=== PATIENT | female | born 1985 | race Caucasian/White ===

== ENCOUNTER 2016-03-24 06:56 | Emergency (ER) | payer MEDICAID, OTHER ==
[2016-03-24] MEDS ORDERED: KETOROLAC 30 MG/ML 1 ML VIAL IVP STA (07:20)
[2016-03-24] MEDS ORDERED: SODIUM CHLORIDE 0.9% 1,000 ML IV ONE (07:20)
[2016-03-24] MEDS ORDERED: METOCLOPRAMIDE 5 MG/ML 2 ML VIAL IVP STA (07:20)
[2016-03-24] MEDS ORDERED: diphenhydrAMINE 50 MG/ML 1 ML VIAL IVP STA (07:20)
--- NOTE | 2016-03-24 07:29 | ED ---
Headache HPI - General Chief Complaint: Headache Stated Complaint: Migrane Time Seen by Provider: 03/24/16 07:05 Source: RN notes reviewed Mode of arrival: ambulatory Limitations: no limitations - History of Present Illness Initial Comments: This patient is a 31-year-old woman who has history of migraine headaches, who presents with onset of which she is describing as watery typical migraine headaches this morning around 2. It did wake her from sleep. She tried taking the Fioricet which was prescribed by her physician but she had vomiting and does not think it was working for this reason. When the headache did not resolve she presented here. She states this is not the worst headache of her life. She has been having migraines for probably 6-7 years, and has previously seen neurologists for this. Patient denies fever or chills, neck stiffness, rash, change in vision or hearing, or any other neurologic symptoms. MD Complaint: headache Onset/Timin -: hour(s) Onset Description: awoke with symptoms Location: right, left, temporal Severity: severe Quality: throbbing Consistency: constant Improves With: nothing Worsens With: none Associated Symptoms: nausea, vomiting Treatments Prior to Arrival: prescription analgesic (Fioricet) - Related Data Home Medications Medication Instructions Recorded Confirmed Beclomethasone Dipropionate [Qvar 1 puff INHALATION RT-BID 03/24/16 03/24/16 80 mcg] Butalb/Acetaminophen/Caffeine 1 - 2 cap PO Q8HR PRN 03/24/16 03/24/16 [Fioricet 50-300-40 mg Capsule] Dextroamphetamine/Amphetamine 20 mg PO QAM 03/24/16 03/24/16 [Adderall Xr] Nortriptyline HCl [Pamelor] 25 mg PO HS 03/24/16 03/24/16 Allergies Allergy/AdvReac Type Severity Reaction Status Date / Time No Known Allergies Allergy Verified 03/24/16 07:26 Review of Systems ROS Statement: Those systems with pertinent positive or pertinent negative responses have been documented in the HPI. ROS Other: All systems not noted in ROS Statement are negative. Constitutional: Denies: fever, chills, weakness Eyes: Denies: eye pain, vision change ENT: Denies: ear pain, hearing loss, congestion Gastrointestinal: Reports: nausea, vomiting. Denies: abdominal pain Musculoskeletal: Denies: back pain Skin: Denies: rash Neurological: Reports: headache. Denies: weakness, numbness, paresthesias, confusion, abnormal gait Past Medical History Additional Past Medical History / Comment(s): migraines History of Any Multi-Drug Resistant Organisms: None Reported Additional Past Surgical History / Comment(s): eye sx Past Psychological History: No Psychological Hx Reported Smoking Status: Former smoker Past Alcohol Use History: Daily Past Drug Use History: None Reported General Exam Limitations: no limitations General appearance: alert, in no apparent distress Head exam: Present: atraumatic, normocephalic, normal inspection Eye exam: Present: normal appearance, PERRL, EOMI, other (Unable to perform funduscopic exam due to photophobia). Absent: scleral icterus, conjunctival injection ENT exam: Present: normal oropharynx, mucous membranes dry Neck exam: Present: normal inspection, full ROM. Absent: meningismus Neurological exam: Present: alert, oriented X3, CN II-XII intact, normal gait. Absent: motor sensory deficit Skin exam: Present: warm, dry, intact, normal color. Absent: rash Course Vital Signs 03/24/16 07:00 Temperature 98.0 F Pulse Rate 126 H Respiratory 18 Rate Blood Pressure 137/91 O2 Sat by Pulse 100 Oximetry Disposition Clinical Impression: Migraine Disposition: HOME SELF-CARE Condition: Good Instructions: Acute Headache (ED) Referrals: Stewart Cox DO [Primary Care Provider] - 1-2 days
[2016-03-24 09:19] VITALS: BP 105/56; PULSE 78; RESP 20; TEMP 98
== END 2016-03-24 09:19 | disposition home or self-care (01) ==
LOC: EC 06:56
DX: G43.909 Migraine, unspecified, not intractable, without status migrainosus (principal); R11.2 Nausea with vomiting, unspecified; Z87.891 Personal history of nicotine dependence; Z79.51 Long term (current) use of inhaled steroids; Z79.899 Other long term (current) drug therapy
CPT/HCPCS: 99283 ×2; 96374 ×2; 96375 ×3; 96361 ×2; J1200; J2765; J1885

== ENCOUNTER → 2016-04-04 | Outpatient (CLI) | payer MEDICAID ==
--- NOTE | 2016-04-04 12:34 | CT ---
EXAMINATION TYPE: CT angio chest DATE OF EXAM: 04/04/2016 12:29 PM COMPARISON: 09/10/2009 HISTORY: increased heart rate CT DLP: 505 mGycm CONTRAST: CT chest with contrast and 3D reconstruction with MIP imaging is performed with IV Contrast, patient injected with 75 mL of Omnipaque 350. Contrast-enhanced CT of the chest was performed through the course of the pulmonary arteries with tracie g and mediastinal window settings submitted. 3D reconstruction with MIP imaging was also performed. PULMONARY ARTERIES: The pulmonary arteries and their major tributaries are patent. I do not see bisi dence for sizable filling defect to suggest pulmonary embolic process. LUNGS: The lungs are clear and free of infiltrate. No evidence for atelectasis. No pulmonary nodule or mass is detected. No pleural effusion. MEDIASTINUM: Thoracic aorta is of normal caliber . The heart is not enlarged. No evidence for media stinal mass. No mediastinal lymph nodes greater than 1cm. HILAR STRUCTURES: No evidence for mass. No hilar lymph nodes greater than 1 cm. UPPER ABDOMEN: No significant abnormality is seen. IMPRESSION: 1. No evidence for Pulmonary embolism at this time.
== END | disposition home or self-care (01) ==
LOC: RADCTMAIN 11:40
PROVIDERS: ATTEND Family Medicine
DX: R00.0 Tachycardia, unspecified (principal); R06.00 Dyspnea, unspecified
CPT/HCPCS: 71275; Q9967

== ENCOUNTER → 2016-04-06 | Outpatient (CLI) | payer MEDICAID ==
--- NOTE | 2016-04-06 16:26 | ECHOF ---
Referral Reason:R00.0 Tachycardia, Unspecified MEASUREMENTS -------- HEIGHT: 160.0 cm WEIGHT: 65.8 kg BP: IVSd: 0.8 cm (0.6 - 1.1) LVIDd: 4.0 cm (3.9 - 5.3) LVPWd: 0.9 cm (0.6 - 1.1) IVSs: 1.3 cm LVIDs: 2.8 cm LVPWs: 1.3 cm Ao Diam: 2.5 cm (2.0 - 3.7) AV Cusp: 1.8 cm (1.5 - 2.6) LA Diam: 2.5 cm (2.7 - 3.8) MV EXCURSION: 17.766 mm (> 18.000) MV EF SLOPE: 146 mm/s (70 - 150) EPSS: 0.9 cm MV E Wojciech: 0.93 m/s MV DecT: 177 ms MV A Wojciech: 0.75 m/s MV E/A Ratio: 1.25 RAP: 5.00 mmHg RVSP: 15.69 mmHg FINDINGS -------- Sinus rhythm. Resting tachycardia (HR>100bpm). This was a technically good study. Left ventricular wall thickness is normal. Overall left ventricular systolic function is normal with, an EF between 55 - 60 %. The right ventricle is normal in size and function. The left atrium is normal in size. The right atrium is normal in size. The aortic valve is trileaflet, and appears structurally normal. No aortic stenosis or regurgitation. There is trace mitral regurgitation. Trace tricuspid regurgitation present. The right ventricular systolic pressure, as measured by Doppler, is 15.69mmHg. Pulmonic valve appears structurally normal. The aortic root size is normal. Echo free space may represent effusion or a pericardial fat pad. CONCLUSIONS -------- 1. Sinus rhythm. 2. There is trace mitral regurgitation. 3. Trace tricuspid regurgitation present. 4. The right ventricular systolic pressure, as measured by Doppler, is 15.69mmHg. 5. Pulmonic valve appears structurally normal. 6. The aortic root size is normal. 7. Echo free space may represent effusion or a pericardial fat pad. 8. Resting tachycardia (HR>100bpm). 9. This was a technically good study. 10. Left ventricular wall thickness is normal. 11. Overall left ventricular systolic function is normal with, an EF between 55 - 60 %. 12. The right ventricle is normal in size and function. 13. The left atrium is normal in size. 14. The right atrium is normal in size. 15. The aortic valve is trileaflet, and appears structurally normal. No aortic stenosis or regurgitation. ADMINISTRATION DEAN: Adrienne Rosales RDCS
== END | disposition home or self-care (01) ==
LOC: RADECHMAIN 13:08
PROVIDERS: ATTEND Family Medicine
DX: I08.1 Rheumatic disorders of both mitral and tricuspid valves (principal); R00.0 Tachycardia, unspecified
CPT/HCPCS: 93306

== ENCOUNTER → 2016-05-04 | Outpatient (CLI) | payer MEDICAID | END | disposition home or self-care (01) | LOC: RADECHMAIN 12:26 | PROVIDERS: ATTEND Internal Medicine Interventional Cardiology | DX: R00.2 Palpitations (principal) | CPT/HCPCS: 93225; 93226 ==

== ENCOUNTER → 2018-03-14 | Outpatient (CLI) | payer MEDICAID ==
--- NOTE | 2018-03-14 14:21 | EST ---
EXERCISE STRESS AGE: 33 SEX: F HT: 5'3" WT: 150 PROTOCOL: José Stress Test STAGE: III DURATION OF EXERCISE: 9:17 HEART RATE REST: 98 BLOOD PRESSURE REST: 129/69 MAXIMUM HEART RATE ACHIEVED: 164 MAXIMUM BLOOD PRESSURE: 167/80 85% MPHR: 159 100% MPHR: 187 METS: 10.5 INDICATIONS: Rapid heart beat CLINICAL INFORMATION: Patient was exercised for a total period of 9 minutes. Peak heart rate of 164 was achieved. Maximum blood pressure of 167/80 mmHg was noted. Resting EKG shows normal sinus rhythm with normal TN interval and QRS duration and normal ST-T waves. No ST- segment depression suggestive of ischemia is noted. No dysrhythmias are noted. FINAL IMPRESSION: 1. This exercise stress test is not suggestive of ischemia. 2. Patient's exercise tolerance is normal. 3. No dysrhythmias are noted. MMEL / CORRINEN: [id number] /
== END | disposition home or self-care (01) ==
LOC: RADNMMAIN 08:48
PROVIDERS: ATTEND Family Medicine
DX: I47.1 Supraventricular tachycardia (principal)
CPT/HCPCS: 93017

== ENCOUNTER → 2018-07-11 | Outpatient (CLI) | payer MEDICAID ==
--- NOTE | 2018-07-11 14:47 | US ---
EXAMINATION TYPE: US thyroid st tissue head/neck DATE OF EXAM: 07/11/2018 COMPARISON: NONE CLINICAL HISTORY: E04.9 goiter. Physician felt enlarged thyroid GLAND SIZE: Right Lobe: 4.4 x 1.1 x 1.3 cm Overall Parenchyma: homogenous Left Lobe: 4.8 x 1.3 x 1.3 cm Overall Parenchyma: homogeneous Isthmus Thickness: 0.2 cm NODULES RIGHT: # of nodules measured on right: 0 LEFT: # of nodules measured on left: 0 ISTHMUS: # of nodules measured in the isthmus: 0 Bilateral neck scanned, no evidence of lymphadenopathy. IMPRESSION: No distinct abnormality appreciated at this time.
[2018-07-11 18:50] LABS: T4, Free (Free Thyroxine) 0.99 ng/dL (0.78-2.19)
== END | disposition home or self-care (01) ==
LOC: RADUSWWP 14:12
PROVIDERS: ATTEND Family Medicine
DX: E04.9 Nontoxic goiter, unspecified (principal)
CPT/HCPCS: 36415; 76536; 84439; 84443

== ENCOUNTER → 2018-10-16 | Outpatient (CLI) | payer MEDICAID ==
[2018-10-16 14:57] LABS: Basophils # (A) 0.1 k/uL (0-0.2); Basophils % (A) 1 %; Eosinophils # (A) 0.1 k/uL (0-0.7); Eosinophils % (A) 1 %; HCT 38.5 % (34.0-46.0); HGB 12.4 gm/dL (11.4-16.0); Lymphocytes # (A) 2.7 k/uL (1.0-4.8); Lymphocytes % (A) 28 %; MCH 30.6 pg (25.0-35.0); MCHC 32.2 g/dL (31.0-37.0); Mean Platelet Volume 10.1; Monocytes # (A) 0.4 k/uL (0-1.0); Monocytes % (A) 4 %; Neutrophils # (A) 6.4 k/uL (1.3-7.7); Neutrophils % (A) 65 %; Platelet Count 309 k/uL (150-450); RBC 4.05 m/uL (3.80-5.40); RDW 13.8 % (11.5-15.5); WBC 9.9 k/uL (3.8-10.6)
[2018-10-16 19:22] LABS: African American GFR (CKD) 138.8 (60.0-200.0); Albumin 4.3 g/dL (3.80-4.90); Albumin/Globulin Ratio 2.15 (1.60-3.17); Anion Gap 8.5 mmol/L (4.00-12.00); Calcium 9.2 mg/dL (8.7-10.3); Carbon Dioxide 23.5 mmol/L (21.6-31.8); Potassium 4.2 mmol/L (3.5-5.5); Total Bilirubin 0.5 mg/dL (0.2-1.2); Total Protein 6.3 g/dL (6.2-8.2)
== END | disposition home or self-care (01) ==
LOC: LABWHC1 13:03
PROVIDERS: ATTEND Family Medicine
DX: R55 Syncope and collapse (principal)
CPT/HCPCS: 36415; 80053; 85025

== ENCOUNTER → 2018-10-30 | Outpatient (CLI) | payer MEDICAID ==
--- NOTE | 2018-10-30 13:50 | MR ---
EXAMINATION TYPE: MR brain wo/w con DATE OF EXAM: 10/30/2018 COMPARISON: Prior MRI brain January 27, 2010. HISTORY: Migraine without aura, not intractable TECHNIQUE: Multiplanar, multisequence images of the brain and brainstem is performed without and with IV contras t, utilizing 7.5 mL intravenous Gadavist . FINDINGS: Diffusion weighted images demonstrate no evidence of a recent infarct or other diffusion ab normality. There is no extra-axial fluid collection or significant white matter signal abnormality. The ventricular system and cisternal spaces are normal in size and appearance. The brain volume is age appropriate. Midline structures demonstrate normal morphology. The craniocervical junction appears within normal limits. Post contrast images demonstrate no abnormal enhancement. The dural venous sinuses appear pa tent. Artifact at level of anterior globes is present. Visualized paranasal sinuses are clear. IMPRESSION: No significant new or acute finding seen to account for patient's symptoms of migraine nael hidalgo
== END | disposition home or self-care (01) ==
LOC: RADMRIMAIN 12:57
PROVIDERS: ATTEND Family Medicine
DX: G43.009 Migraine without aura, not intractable, without status migrainosus (principal)
CPT/HCPCS: 70553; A9585

== ENCOUNTER → 2019-10-15 | Outpatient (CLI) | payer MEDICAID ==
--- NOTE | 2019-10-15 10:38 | ECHOF ---
Referral Reason:Chest pain, Short of breath MEASUREMENTS -------- HEIGHT: 160.0 cm WEIGHT: 71.7 kg BP: RVIDd: 3.1 cm (< 3.3) IVSd: 0.9 cm (0.6 - 1.1) LVIDd: 4.4 cm (3.9 - 5.3) LVPWd: 1.0 cm (0.6 - 1.1) IVSs: 1.3 cm LVIDs: 2.8 cm LVPWs: 1.6 cm LAESV Index (A-L): 24.61 ml/m Ao Diam: 2.3 cm (2.0 - 3.7) AV Cusp: 1.7 cm (1.5 - 2.6) MV EXCURSION: 24.829 mm (> 18.000) MV EF SLOPE: 122 mm/s (70 - 150) EPSS: 0.4 cm MV E Wojciech: 0.90 m/s MV DecT: 110 ms MV A Wojciech: 0.50 m/s MV E/A Ratio: 1.79 RAP: 5.00 mmHg RVSP: 32.98 mmHg FINDINGS -------- Sinus rhythm. This was a technically adequate study. The left ventricular size is normal. Left ventricular wall thickness is normal. Overall left vent ricular systolic function is normal with, an EF between 55 - 60 %. The diastolic filling pattern is normal for the age of the patient 4.51. The right ventricle is normal in size. Normal LA size by volume 22+/-6 ml/m2. The right atrial size is normal. Interatrial and interventricular septum intact. The aortic valve is trileaflet and appears structurally normal. There is no evidence of aortic regu rgitation. There is no evidence of aortic stenosis. Mild mitral regurgitation is present. Mild tricuspid regurgitation present. There is no evidence of pulmonary hypertension. The right v entricular systolic pressure, as measured by Doppler, is 32.98mmHg. There is no pulmonic regurgitation present. The aortic root size is normal. Normal inferior vena cava with normal inspiratory collapse consistent with estimated right atrial pre ssure of 5 mmHg. There is no pericardial effusion. CONCLUSIONS -------- 1. The left ventricular size is normal. 2. Left ventricular wall thickness is normal. 3. Overall left ventricular systolic function is normal with, an EF between 55 - 60 %. 4. The diastolic filling pattern is normal for the age of the patient 4.51 5. Mild mitral regurgitation is present. 6. Mild tricuspid regurgitation present. JANITOR HELPER: Cherrie Gil RDCS
--- NOTE | 2019-10-15 15:13 | ECHOS ---
STRESS ECHOCARDIOGRAM LUMASON: - Vial INDICATIONS: Chest pain. MEDICATIONS: BASELINE HEART RATE: 66 BASELINE BLOOD PRESSURE: 122/61 MAXIMUM HEART RATE: 152 MAXIMUM BLOOD PRESSURE: 187/95 85% MPHR: 158 100% MPHR: 186 METS: 11.3 MAXIMUM STAGE REACHED: 4 TOTAL EXERCISE TIME10:01: CLINICAL INFORMATION: This is a 34-year-old female referred for this evaluation of chest pain. She underwent a exercise stress echo. Baseline heart rate 66 beats per minute. Baseline blood pressure 122/61 mmHg. Patient exercised on a José protocol. Baseline 12-lead ECG showed normal sinus rhythm, normal cardiac intervals. Patient exercised on a José protocol for 10 minutes achieving a peak heart rate of 152 beats per minute. Normal blood pressure response to exercise. There was no ECG evidence for ischemia. Occasional PVCs were noted. Baseline 2D echo images showed normal LV size and systolic function without segmental wall motion abnormalities. At peak exercise, there was excellent augmentation of overall LV contractility without developing any wall motion abnormalities. At recovery, regional global LV systolic function remained normal. She had an occasional PVC. IMPRESSION: 1. Good exercise capacity on a José protocol. 2. Asymptomatic during stress test. 3. No ECG evidence for ischemia. 4. No echocardiographic evidence for ischemia. 5. Very occasional PVCs with exercise. MMODL / IJN: [id number] /
== END | disposition home or self-care (01) ==
LOC: RADNMMAIN 09:06
PROVIDERS: ATTEND Internal Medicine Interventional Cardiology
DX: I08.1 Rheumatic disorders of both mitral and tricuspid valves (principal)
CPT/HCPCS: 93306; 93351

== ENCOUNTER 2021-10-13 09:22 | Emergency (ER) | payer BC, MEDICAID ==
[2021-10-13 09:29] VITALS: TEMP 98.3
[2021-10-13] MEDS ORDERED: SODIUM CHLORIDE 0.9% 1,000 ML IV STA (10:06)
[2021-10-13] MEDS ORDERED: KETOROLAC 15 MG/ML 1 ML VIAL IVP STA (10:06)
--- NOTE | 2021-10-13 10:26 | ED ---
Female Urogenital HPI - General Chief complaint: Vaginal Bleeding Stated complaint: Cramping,Clotting, PCP sent Time Seen by Provider: 10/13/21 09:58 Source: patient, RN notes reviewed Mode of arrival: ambulatory Limitations: no limitations - History of Present Illness Initial comments: This is a 36-year-old female who presents to the emergency department for irregular vaginal bleeding, passing clots, and pelvic cramping. Patient states that this started with pelvic cramping 2 weeks ago, and over the last week she has had sporadic bleeding with heavy clots. States that she has had irregular periods for most of her life, however she has never passed clots before or had cramping this severe. She does not believe that she is , she states that she usually gets morning sickness before the test turns positive, which she has not had. She had been on OCPs, however she stopped taking them 1-2 weeks ago because she did not feel like they were helping her periods. She was supposed to have an appointment with her health informatics instructor today, however he tested positive for COVID and her appointment was subsequently canceled. She was going to see her primary care provider, who advised she come to the emergency department instead for a more thorough evaluation. She does mention that her mother required a hysterectomy at a very young age due to irregular bleeding. Denies any fevers, chills, sore throat, cough, dyspnea, chest pain, p alpitations, nausea, vomiting, diarrhea, back pain, or headaches. MD Complaint: vaginal bleeding, pelvic pain Onset/Timin -: week(s) Quality: cramping - Related Data Home Medications Medication Instructions Recorded Confirmed Beclomethasone Dipropionate [Qvar 1 puff INHALATION RT-BID 03/24/16 03/24/16 80 mcg] Butalb/Acetaminophen/Caffeine 1 - 2 cap PO Q8HR PRN 03/24/16 03/24/16 [Fioricet 50-300-40 mg Capsule] Dextroamphetamine/Amphetamine 20 mg PO QAM 03/24/16 03/24/16 [Adderall Xr] Nortriptyline HCl [Pamelor] 25 mg PO HS 03/24/16 03/24/16 Previous Rx's Medication Instructions Recorded Acetaminophen-Codeine 300-30mg 1 tab PO Q6H PRN 3 Days #12 tablet 08/03/22 [Tylenol w/codeine #3] Ketorolac [Toradol] 10 mg PO Q6HR PRN #16 tab 10/13/21 Progesterone, Micronized 400 mg PO QAM #10 capsule 10/13/21 [Progesterone] norethindrone ac-eth estradioL 1 tab PO DAILY #21 tab 10/13/21 [Loestrin 21 1-20 Tablet] Allergies Allergy/AdvReac Type Severity Reaction Status Date / Time No Known Allergies Allergy Verified 10/13/21 09:29 Review of Systems ROS Statement: Those systems with pertinent positive or pertinent negative responses have been documented in the HPI. ROS Other: All systems not noted in ROS Statement are negative. Past Medical History Additional Past Medical History / Comment(s): migraines History of Any Multi-Drug Resistant Organisms: None Reported Additional Past Surgical History / Comment(s): eye sx Past Psychological History: No Psychological Hx Reported Smoking Status: Former smoker Past Alcohol Use History: Occasional Past Drug Use History: Marijuana General Exam Limitations: no limitations General appearance: alert, in no apparent distress Head exam: Present: atraumatic, normocephalic, normal inspection Respiratory exam: Present: normal lung sounds bilaterally. Absent: respiratory distress, wheezes, rales, rhonchi, stridor Cardiovascular Exam: Present: regular rate, normal rhythm, normal heart sounds. Absent: systolic murmur, diastolic murmur, rubs, gallop, clicks GI/Abdominal exam: Present: soft, normal bowel sounds. Absent: distended, tenderness, guarding, rebound, rigid Neurological exam: Present: alert, oriented X3, CN II-XII intact Psychiatric exam: Present: normal affect, normal mood Skin exam: Present: warm, dry, intact, normal color. Absent: rash Course Vital Signs 10/13/21 10/13/21 09:25 15:00 Temperature 98.3 F Pulse Rate 107 H 65 Respiratory 18 16 Rate Blood Pressure 158/97 124/72 O2 Sat by Pulse 100 100 Oximetry Medical Decision Making - Medical Decision Making This is a 36-year-old female who presents to the emergency department for pelvic cramping and vaginal bleeding. Lab work, test, urinalysis, and pelvic ultrasound were obtained. Lab work was nonactionable and did not reveal a decreased hemoglobin level to suggest that the patient was losing an uncontrollable amount of blood. Ultrasound was suggestive of possible uterine fibroids. Discussed with the patient that stopping her control likely exacerbated this issue. We also discussed additional symptoms that uterine fibroids may cause, such as constipation and lower back pain. Given that her bleeding is uncontrollable, will put patient on a short course of progesterone t o stop the bleeding followed by a new prescription for control. Instructed her to follow-up with her CAR DETAILER for further evaluation and management. Prescription for Toradol and Zofran sent to the pharmacy. I did provide a short course of Tylenol #3 due to her pain, instructed her to use this very sparingly when the pain is most severe. Return precautions reviewed in depth, the patient is instructed to return to the emergency department with any new, worsening, or concerning symptoms. Patient verbalized understanding. This case was discussed in detail with the attending ED physician. Presentation, findings, and treatment plan discussed in detail as well. - Lab Data Result diagrams: 10/13/21 11:27 10/13/21 11:27 Lab Results 10/13/21 10/13/21 10/13/21 Range/Units 11:27 11:27 12:40 WBC 10.9 H (3.8-10.6) k/uL RBC 4.27 (3.80-5.40) m/uL Hgb 13.2 (11.4-16.0) gm/dL Hct 41.2 (34.0-46.0) % MCV 96.5 (80.0-100.0) fL MCH 31.0 (25.0-35.0) pg MCHC 32.1 (31.0-37.0) g/dL RDW 12.2 (11.5-15.5) % Plt Count 323 (150-450) k/uL MPV 7.9 Neutrophils % 62 % Lymphocytes % 29 % Monocytes % 5 % Eosinophils % 2 % Basophils % 1 % Neutrophils # 6.7 (1.3-7.7) k/uL Lymphocytes # 3.2 (1.0-4.8) k/uL Monocytes # 0.5 (0-1.0) k/uL Eosinophils # 0.2 (0-0.7) k/uL Basophils # 0.1 (0-0.2) k/uL Sodium 138 (137-145) mmol/L Potassium 4.5 (3.5-5.1) mmol/L Chloride 108 H (98-107) mmol/L Carbon Dioxide 21 L (22-30) mmol/L Anion Gap 9 mmol/L BUN 13 (7-17) mg/dL Creatinine 0.58 (0.52-1.04) mg/dL Est GFR (CKD-EPI)AfAm >90 (>60 ml/min/1.73 sqM) Est GFR (CKD-EPI)NonAf >90 (>60 ml/min/1.73 sqM) Glucose 88 (74-99) mg/dL Calcium 9.8 (8.4-10.2) mg/dL Total Bilirubin 0.6 (0.2-1.3) mg/dL AST 28 (14-36) U/L ALT 17 (4-34) U/L Alkaline Phosphatase 35 L (38-126) U/L Total Protein 7.4 (6.3-8.2) g/dL Albumin 4.5 (3.5-5.0) g/dL TSH 3.170 (0.465-4.680) mIU/L HCG, Qual Not Detected Urine Color Red Urine Appearance Cloudy H (Clear) Urine pH 6.0 (5.0-8.0) Ur Specific [place] 1.021 (1.001-1.035) Urine Protein 1+ H (Negative) Urine Glucose (UA) Negative (Negative) Urine Ketones Negative (Negative) Urine Blood Large H (Negative) Urine Nitrite Negative (Negative) Urine Bilirubin Negative (Negative) Urine Urobilinogen <2.0 (<2.0) mg/dL Ur Leukocyte Esterase Small H (Negative) Urine RBC >182 H (0-5) /hpf Urine WBC 12 H (0-5) /hpf Ur Squamous Epith Cells 2 (0-4) /hpf Urine Mucus Occasional H (None) /hpf Blood Type Blood Type Recheck Bld Type Recheck Status 10/13/21 Range/Units 12:40 WBC (3.8-10.6) k/uL RBC (3.80-5.40) m/uL Hgb (11.4-16.0) gm/dL Hct (34.0-46.0) % MCV (80.0-100.0) fL MCH (25.0-35.0) pg MCHC (31.0-37.0) g/dL RDW (11.5-15.5) % Plt Count (150-450) k/uL MPV Neutrophils % % Lymphocytes % % Monocytes % % Eosinophils % % Basophils % % Neutrophils # (1.3-7.7) k/uL Lymphocytes # (1.0-4.8) k/uL Monocytes # (0-1.0) k/uL Eosinophils # (0-0.7) k/uL Basophils # (0-0.2) k/uL Sodium (137-145) mmol/L Potassium (3.5-5.1) mmol/L Chloride (98-107) mmol/L Carbon Dioxide (22-30) mmol/L Anion Gap mmol/L BUN (7-17) mg/dL Creatinine (0.52-1.04) mg/dL Est GFR (CKD-EPI)AfAm (>60 ml/min/1.73 sqM) Est GFR (CKD-EPI)NonAf (>60 ml/min/1.73 sqM) Glucose (74-99) mg/dL Calcium (8.4-10.2) mg/dL Total Bilirubin (0.2-1.3) mg/dL AST (14-36) U/L ALT (4-34) U/L Alkaline Phosphatase (38-126) U/L Total Protein (6.3-8.2) g/dL Albumin (3.5-5.0) g/dL TSH (0.465-4.680) mIU/L HCG, Qual Urine Color Urine Appearance (Clear) Urine pH (5.0-8.0) Ur Specific [place] (1.001-1.035) Urine Protein (Negative) Urine Glucose (UA) (Negative) Urine Ketones (Negative) Urine Blood (Negative) Urine Nitrite (Negative) Urine Bilirubin (Negative) Urine Urobilinogen (<2.0) mg/dL Ur Leukocyte Esterase (Negative) Urine RBC (0-5) /hpf Urine WBC (0-5) /hpf Ur Squamous Epith Cells (0-4) /hpf Urine Mucus (None) /hpf Blood Type O Negative Blood Type Recheck O Neg Bld Type Recheck Status No - Radiology Data Radiology results: report reviewed, image reviewed Disposition Clinical Impression: Dysfunctional uterine bleeding, Pelvic cramping Disposition: HOME SELF-CARE Instructions (If sedation given, give patient instructions): Pelvic Pain in Women (ED), Menorrhagia (ED) Additional Instructions: Return to the emergency department with any new, worsening, or concerning symptoms. Follow up with your semiconductor processing technician. Alternate with Toradol and Tylenol as needed for pain relief. Take the Tylenol #3 when the pain is the most severe.. Take the progesterone tablets daily for 10 days. Then begin using the control. Prescriptions: norethindrone ac-eth estradioL [Loestrin 21 1-20 Tablet] 1 tab PO DAILY #21 tab Progesterone, Micronized [Progesterone] 400 mg PO QAM #10 capsule Ketorolac [Toradol] 10 mg PO Q6HR PRN #16 tab PRN Reason: Pain Acetaminophen-Codeine 300-30mg [Tylenol w/codeine #3] 1 tab PO Q6H PRN 3 Days #12 tablet PRN Reason: Pain Is patient prescribed a controlled substance at d/c from ED?: No Referrals: Stewart Cox DO [Primary Care Provider] - 1-2 days
[2021-10-13 11:36] LABS: Basophils # (A) 0.1 k/uL (0-0.2); Basophils % (A) 1 %; Eosinophils # (A) 0.2 k/uL (0-0.7); Eosinophils % (A) 2 %; HCT 41.2 % (34.0-46.0); HGB 13.2 gm/dL (11.4-16.0); Lymphocytes # (A) 3.2 k/uL (1.0-4.8); Lymphocytes % (A) 29 %; MCHC 32.1 g/dL (31.0-37.0); MCV 96.5 fL (80.0-100.0); Mean Platelet Volume 7.9; Monocytes # (A) 0.5 k/uL (0-1.0); Monocytes % (A) 5 %; Neutrophils # (A) 6.7 k/uL (1.3-7.7); Neutrophils % (A) 62 %; Platelet Count 323 k/uL (150-450); RBC 4.27 m/uL (3.80-5.40); RDW 12.2 % (11.5-15.5); WBC 10.9 k/uL (3.8-10.6)
[2021-10-13 12:01] LABS: ALT 17 U/L (4-34); AST 28 U/L (14-36); African American GFR (CKD) >90 (>60 ml/min/1.73 sqM); Albumin 4.5 g/dL (3.5-5.0); Alkaline Phosphatase 35 U/L (38-126); Anion Gap 9 mmol/L; Blood Urea Nitrogen 13 mg/dL (7-17); Calcium 9.8 mg/dL (8.4-10.2); Carbon Dioxide 21 mmol/L (22-30); Chloride 108 mmol/L (98-107); Glucose 88 mg/dL (74-99); Non-African American GFR(CKD) >90 (>60 ml/min/1.73 sqM); Potassium 4.5 mmol/L (3.5-5.1); Sodium 138 mmol/L (137-145); Total Bilirubin 0.6 mg/dL (0.2-1.3); Total Protein 7.4 g/dL (6.3-8.2)
[2021-10-13 12:16] LABS: HCG,Qualitative Serum Not Detected
--- NOTE | 2021-10-13 12:44 | US ---
EXAMINATION TYPE: US pelvic complete DATE OF EXAM: 10/13/2021 COMPARISON: NONE CLINICAL HISTORY: Pelvic pain and irregular bleeding. TECHNIQUE: . Transabdominal sonographic images of the pelvis were acquired Date of LMP: EXAM MEASUREMENTS: Uterus: 9.3 x 4.6 x 5.1 cm Endometrial Stripe: 0.3 cm Right Ovary: 3.5 x 2.0 x 1.8 cm Left Ovary: 2.5 x 1.4 x 1.3 cm 1. Uterus: Anteverted heterogenous echotexture 2. Endometrium: wnl 3. Right Ovary: wnl 4. Left Ovary: wnl Spectral, color and waveform doppler imaging shows arterial and venous flow within the ovaries 5. Bilateral Adnexa: wnl 6. Posterior cul-de-sac: wnl IMPRESSION: Findings could represent underlying fibroids, consider pelvic mri
[2021-10-13 13:19] LABS: Appearance,Urine Cloudy (Clear); Bilirubin,Urine Negative (Negative); Blood,Urine Large (Negative); Color,Urine Red; Glucose,Urine (UA) Negative (Negative); Ketones,Urine Negative (Negative); Leukocyte Esterase,Urine Small (Negative); Mucus,Urine Occasional /hpf; Nitrite,Urine Negative (Negative); Protein,Urine 1+ (Negative); RBC,Urine >182 /hpf (0-5); Specific Gravity,Urine 1.021 (1.001-1.035); Squamous Epithelial Cell,Urine 2 /hpf (0-4); Urobilinogen,Urine <2.0 mg/dL (<2.0); WBC,Urine 12 /hpf (0-5)
[2021-10-13 15:02] VITALS: BP 124/72; PULSE 65; RESP 16
== END 2021-10-13 15:00 | disposition home or self-care (01) ==
LOC: EC 09:22
DX: N93.9 Abnormal uterine and vaginal bleeding, unspecified (principal); Z87.891 Personal history of nicotine dependence; F12.90 Cannabis use, unspecified, uncomplicated
CPT/HCPCS: 36415; 86900; 86901; 80053; 84443; 85025; 81001; 84703; 87086; 93975; 76856; 99284; 96374; 96361 ×4; J1885

== ENCOUNTER → 2021-10-19 | Outpatient (CLI) | payer BC ==
--- NOTE | 2021-10-19 10:27 | CT ---
EXAMINATION TYPE: CT abdomen pelvis wo con DATE OF EXAM: 10/19/2021 COMPARISON: 01/14/2010 HISTORY: 36-year-old female R1 0.9, abdominal pain CT DLP: 308.6 mGycm. Automated exposure control for dose reduction was used. TECHNIQUE: Contiguous axial scanning of the abdomen and pelvis without IV contrast. Coronal and sagit mark reconstructions performed. FINDINGS: LUNG BASES: No significant abnormality is appreciated. LIVER/GB: No significant abnormality is appreciated. PANCREAS: No significant abnormality is seen. SPLEEN: No significant abnormality is seen. Small hilar splenules are noted. ADRENALS: No significant abnormality is seen. KIDNEYS: No significant abnormality is seen. No suspicious calcifications or hydronephrosis. BOWEL: No dilated small bowel, free fluid, or free air. Normal appendix seen. Mild stool burden. No pericolonic inflammatory change. LYMPH NODES: No mesenteric or retroperitoneal lymphadenopathy identified. PELVIS: Bladder urine distended. Scattered pelvic phleboliths. Right ovary not clearly delineated. Ut erus anteverted. No abnormal fluid collection in the pelvis or pelvic lymphadenopathy. BONES: No osseous destructive process. IMPRESSION: No acute inflammatory process identified in the abdomen or pelvis to explain the patient's symptoms. Normal appendix. No renal calculi or hydronephrosis.
== END | disposition home or self-care (01) ==
LOC: RADCTMAIN 09:31
PROVIDERS: ATTEND Family Medicine
DX: R10.9 Unspecified abdominal pain (principal)
CPT/HCPCS: 74176

== ENCOUNTER 2024-09-15 18:34 | Emergency (ER) | payer BC, OTHER ==
--- NOTE | 2024-09-15 19:32 | ED ---
Headache HPI - General Chief Complaint: Headache Stated Complaint: Migraine Time Seen by Provider: 09/15/24 19:30 Source: patient, RN notes reviewed Mode of arrival: ambulatory Limitations: no limitations - History of Present Illness Initial Comments: 39-year-old female with history of migraines presenting for headache since this morning. Reports a constant, bandlike pain that began in the left temporal area and is spread to the entire head. States this feels similar in quality to previous migraines. States when she has these headaches she usually receives a migraine cocktail and symptoms improved. Denies head injury or trauma. Denies blood thinners. - Related Data Home Medications Medication Instructions Recorded Confirmed Beclomethasone Dipropionate [Qvar 1 puff INHALATION RT-BID 03/24/16 03/24/16 80 mcg] Butalb/Acetaminophen/Caffeine 1 - 2 cap PO Q8HR PRN 03/24/16 03/24/16 [Fioricet 50-300-40 mg Capsule] Dextroamphetamine/Amphetamine 20 mg PO QAM 03/24/16 03/24/16 [Adderall Xr] Nortriptyline HCl [Pamelor] 25 mg PO HS 03/24/16 03/24/16 Previous Rx's Medication Instructions Recorded Acetaminophen-Codeine 300-30mg 1 tab PO Q6H PRN 3 Days #12 tablet 10/13/21 [Tylenol w/codeine #3] Ketorolac [Toradol] 10 mg PO Q6HR PRN #16 tab 10/13/21 Progesterone, Micronized 400 mg PO QAM #10 capsule 10/13/21 [Progesterone] norethindrone ac-eth estradioL 1 tab PO DAILY #21 tab 10/13/21 [Loestrin 21 1-20 Tablet] Allergies Allergy/AdvReac Type Severity Reaction Status Date / Time No Known Allergies Allergy Verified 09/15/24 18:58 Review of Systems ROS Statement: Those systems with pertinent positive or pertinent negative responses have been documented in the HPI. ROS Other: All systems not noted in ROS Statement are negative. Past Medical History Additional Past Medical History / Comment(s): migraines History of Any Multi-Drug Resistant Organisms: None Reported Additional Past Surgical History / Comment(s): eye sx Past Psychological History: No Psychological Hx Reported Smoking Status: Former smoker Past Alcohol Use History: Occasional Past Drug Use History: Marijuana General Exam Limitations: no limitations General appearance: alert, in no apparent distress Head exam: Present: atraumatic, normocephalic, normal inspection Eye exam: Present: normal appearance, PERRL, EOMI. Absent: scleral icterus, conjunctival injection, periorbital swelling ENT exam: Present: normal exam, mucous membranes moist Neck exam: Present: normal inspection. Absent: tenderness, meningismus, lymphadenopathy Respiratory exam: Present: normal lung sounds bilaterally. Absent: respiratory distress, wheezes, rales, rhonchi, stridor Cardiovascular Exam: Present: regular rate, normal rhythm, normal heart sounds. Absent: systolic murmur, diastolic murmur, rubs, gallop, clicks Neurological exam: Present: alert, oriented X3, CN II-XII intact Psychiatric exam: Present: normal affect, normal mood Skin exam: Present: warm, dry, intact, normal color. Absent: rash Course Vital Signs 09/15/24 18:55 Temperature 98.7 F Pulse Rate 67 Respiratory 18 Rate Blood Pressure 145/85 O2 Sat by Pulse 100 Oximetry Medical Decision Making - Medical Decision Making Was pt. sent in by a medical professional or institution (, PA, ROBOT PROGRAMMER, urgent care, hospital, or intermediate...) When possible be specific @ -No Did you speak to anyone other than the patient for history (EMS, parent, family, police, friend...)? What history was obtained from this source @ -No Did you review nursing and triage notes (agree or disagree)? Why? @ -I reviewed and agree with nursing and triage notes Were old charts reviewed (outside hosp., previous admission, EMS record, old EKG, old radiological studies, urgent care reports/EKG's, intermediate records)? Report findings @ -No old charts were reviewed Differential Diagnosis (chest pain, altered mental status, abdominal pain women, abdominal pain men, vaginal bleeding, weakness, fever, dyspnea, syncope, headache, dizziness, GI bleed, back pain, seizure, CVA, palpatations, mental health, musculoskeletal)? @ -Differential Headache: Migraine, tension, cluster, carbon monoxide, central venous thrombosis, pension karma temporal arteritis, acute closure glaucoma, intercranial hemorrhage, mastoiditis, sinusitis, head injury, this is not meant to be an all-inclusive list. EKG interpreted by me (3pts min.). @ -None X-rays interpreted by me (1pt min.). @ -None done CT interpreted by me (1pt min.). @ -None done U/S interpreted by me (1pt. min.). @ -None done What testing was considered but not performed or refused? (CT, X-rays, U/S, labs)? Why? @ -None What meds were considered but not given or refused? Why? @ -None Did you discuss the management of the patient with other professionals (professionals i.e. , PA, ROBOT PROGRAMMER, lab, RT, psych nurse, social media strategist, field handyman, teacher, life science technical officer, rn case management)? Give summary @ -No Was smoking cessation discussed for >3mins.? @ -No Was critical care preformed (if so, how long)? @ -No Were there social determinants of health that impacted care today? How? (Homelessness, low income, unemployed, alcoholism, drug addiction, transportation, low edu. Level, literacy, decrease access to med. care, alf, rehab)? @ -No Was there de-escalation of care discussed even if they declined (Discuss DNR or withdrawal of care, Hospice)? DNR status @ -No What co-morbidities impacted this encounter? (DM, HTN, Smoking, COPD, CAD, Cancer, CVA, ARF, Chemo, Hep., AIDS, mental health diagnosis, sleep apnea, morbid obesity)? @ -None Was patient admitted / discharged? Hospital course, mention meds given and route, prescriptions, significant lab abnormalities, going to OR and other pertinent info. @ -Discharge. 39-year-old female with history of migraines presenting for headache x 1 day that feels similar in quality to previous migraines. Neurological examination is unremarkable. Provided with migraine cocktail and reports significant improvement of symptoms. Patient can safely be discharged home with appropriate return precautions and follow-up care. Case was discussed with my ED attending Dr. Tejada Undiagnosed new problem with uncertain prognosis? @ -No Drug Therapy requiring intensive monitoring for toxicity (Heparin, Nitro, Insulin, Cardizem)? @ -No Were any procedures done? @ -No Diagnosis/symptom? @ -Headache Acute, or Chronic, or Acute on Chronic? @ -Default Uncomplicated (without systemic symptoms) or Complicated (systemic symptoms)? @ -Default Side effects of treatment? @ -No Exacerbation, Progression, or Severe Exacerbation? @ -No Poses a threat to life or bodily function? How? (Chest pain, [place], [place], pneumonia, PE, COPD, DKA, ARF, appy, cholecystitis, CVA, Diverticulitis, Homicidal, Suicidal, threat to staff... and all critical care pts) @ -No Disposition Clinical Impression: Headache Disposition: HOME SELF-CARE Condition: Stable Instructions (If sedation given, give patient instructions): Acute Headache (ED) Additional Instructions: Please return to the Emergency Department if symptoms worsen or any other concerns. Is patient prescribed a controlled substance at d/c from ED?: No Referrals: Stewart Cox DO [Primary Care Provider] - 1-2 days Time of Disposition: 21:00
[2024-09-15] MEDS: diphenhydrAMINE 50 MG/ML 1 ML VIAL IVP STA (20:14)
[2024-09-15] MEDS: SODIUM CHLORIDE 0.9% 1,000 ML IV STA (20:14)
[2024-09-15] MEDS: KETOROLAC 15 MG/ML 1 ML VIAL IVP STA (20:15)
[2024-09-15] MEDS: METOCLOPRAMIDE 5 MG/ML 2 ML VIAL IVP STA (20:15)
[2024-09-15 21:15] VITALS: BP 130/83; PULSE 60; RESP 15; TEMP 97.8
== END 2024-09-15 21:14 | disposition home or self-care (01) ==
LOC: EC 18:34
DX: G43.909 Migraine, unspecified, not intractable, without status migrainosus (principal); Z87.891 Personal history of nicotine dependence
CPT/HCPCS: 99283; 96374; 96375 ×2; 96361; J1200; J2765; J1885